=== PATIENT | female | born 1955 ===

== ENCOUNTER 2018-03-06 08:31 | Day surgery (SDC) | payer MEDICAID ==
[~2018-03-06] VITALS: Ht 157.5 cm; Wt 72.9 kg
[~2018-03-06 08:31] MED LIST: ACET325T14 PO; ASPI-496 PO; CANA300T PO; HYDR-3240 PO; IBUP-1484 PO; LOSA1TAB19 PO; METF850T10 PO; [UNRECOGNIZED DRUG - REMARK]
[2018-03-06 09:04] VITALS: BP 131/85
[2018-03-06] MEDS ORDERED: LACTATED RINGERS 1,000 ML IV SCH (09:07)
[2018-03-06] MEDS ORDERED: METF500T17 PO (09:09)
[2018-03-06] MEDS ORDERED: ATOR40TA PO (09:09)
[2018-03-06] MEDS ORDERED: MIDAZOLAM 1 MG/ML, 2ML ONE (09:26)
[2018-03-06] MEDS ORDERED: FENTANYL PF 250 MCG/5ML ONE (09:26)
[2018-03-06] MEDS ORDERED: LIDOCAINE 2% 100MG/5ML SYRINGE ONE (09:28)
[2018-03-06] MEDS ORDERED: CEFOTETAN PMX 2GM/50ML 50 ML ONE ×2 (09:28)
[2018-03-06] MEDS ORDERED: ROCURONIUM 10MG/ML,5ML ONE (09:28)
[2018-03-06] MEDS ORDERED: PROPOFOL 10 MG/ML, 20ML ONE (09:28)
[2018-03-06] MEDS ORDERED: GLYCOPYRROLATE 0.4 MG/2 ML, 2ML ONE (09:37)
[2018-03-06] MEDS ORDERED: NEOSTIGMINE 1 MG/ML, 10ML ONE (09:37)
[2018-03-06] MEDS ORDERED: BUPIVACAINE/PF-EPI 0.5% 1:200K ONE (09:53)
[2018-03-06] MEDS ORDERED: KETOROLAC 30 MG/1 ML ONE (10:12)
[2018-03-06] MEDS ORDERED: DEXAMETHASONE 4 MG/ML, 1ML ONE ×2 (10:12)
[2018-03-06] MEDS ORDERED: ONDANSETRON 2MG/ML, 2ML ONE ×2 (10:12)
[2018-03-06] MEDS ORDERED: ACETAMINOPHEN 325 MG TABLET PO PRN (10:30)
[2018-03-06] MEDS ORDERED: HYDROmorphone 1 MG/ML, 1ML IV PRN (10:30)
[2018-03-06] MEDS ORDERED: PROMETHAZINE 25 MG/ML, 1ML IV PRN (10:30)
[2018-03-06] MEDS ORDERED: LABETALOL 5MG/ML, 20ML IV PRN (10:30)
[2018-03-06] MEDS ORDERED: hydrALAzine 20 MG/ML, 1ML IV PRN (10:30)
[2018-03-06] MEDS ORDERED: OXYcodone 5 MG/5 ML ORAL.SOL UDC PO PRN ×2 (10:30→11:00)
[2018-03-06] MEDS ORDERED: HALOPERIDOL 5 MG/ML IV PRN (10:30)
[2018-03-06] MEDS ORDERED: MEPERIDINE/PF 25MG/0.5ML IVPush PRN (10:30)
[2018-03-06] MEDS ORDERED: ACETAMINOPHEN 650 MG/20.3 ML UDC ONE (11:09)
[2018-03-06] MEDS ORDERED: FENTANYL PF 100 MCG/2ML ONE (11:09)
[2018-03-06] MEDS ORDERED: OXYcodone 5 MG/5 ML ORAL.SOL UDC ONE (11:09)
[2018-03-06] MEDS: FENTANYL PF 100 MCG/2ML IV PRN ×2 (11:13→11:26)
== END 2018-03-06 14:00 | disposition home or self-care (01) ==
LOC: OUT 08:31
PROVIDERS: ATTEND Surgery
DX: K80.10 Calculus of gallbladder with chronic cholecystitis without obstruction (principal); E78.5 Hyperlipidemia, unspecified; I10 Essential (primary) hypertension; E11.9 Type 2 diabetes mellitus without complications; Z79.899 Other long term (current) drug therapy; Z98.49 Cataract extraction status, unspecified eye
CPT/HCPCS: 47562; 82962; 88304; 93005; J1100; J1885; J2250; J2405; J2704; J2710; J3010; J3490; J7120

== ENCOUNTER 2018-09-18 11:08 | Emergency (ER) | payer MEDICAID ==
[~2018-09-18] VITALS: Ht 157.5 cm; Wt 79.2 kg
[~2018-09-18 11:08] MED LIST changes: +ATOR40TA PO; +METF500T17 PO
[2018-09-18 11:16] VITALS: BP 124/77
--- NOTE | 2018-09-18 11:21 | NUR ---
RASH BILATERAL LEGS FOR APPROX 1 WEEK
[2018-09-18 11:57] LABS: BASOPHILS # (AUTO) 0.03 x10^3/uL (0-0.1); BASOPHILS % (AUTO) 1 % (0-1); EOSINOPHILS # (AUTO) 0.33 x10^3/uL (0-0.4); EOSINOPHILS % (AUTO) 5 % (1-7); LYMPHOCYTES # (AUTO) 1.67 x10^3/uL (1-3.4); LYMPHOCYTES % (AUTO) 26 % (22-44); MD NO; MEAN CORPUSCULAR HEMOGLOBIN 29.1 pg (27.0-34.8); MEAN CORPUSCULAR HGB CONC 32.6 g/dL (32.4-35.8); MEAN CORPUSCULAR VOLUME 89.2 fL (80-100); MEAN PLATELET VOLUME 9.5 fL (7.4-10.4); MONOCYTES # (AUTO) 0.54 x10^3/uL (0.2-0.8); MONOCYTES % (AUTO) 9 % (2-9); NEUTROPHILS # (AUTO) 3.76 x10^3/uL (1.8-6.8); NEUTROPHILS % (AUTO) 59 % (42-75); PLATELET COUNT 158 x10^3/uL (130-400); RED BLOOD COUNT 5.06 x10^6/uL (3.82-5.3); RED CELL DISTRIBUTION WIDTH 13.9 % (9.6-15.2)
[2018-09-18 12:13] LABS: ALBUMIN 3.6 g/dL (3.4-5.0); ANION GAP 8 mmol/L (5-15); CALCIUM 8.6 mg/dL (8.5-10.1); CHLORIDE 106 mmol/L (98-107)
[2018-09-18 12:17] LABS: ALANINE AMINOTRANSFERASE 38 U/L (12-78); ALKALINE PHOSPHATASE 107 U/L (45-117); BILIRUBIN,TOTAL 0.3 mg/dL (0.2-1.0); CREATININE 0.79 mg/dL (0.55-1.02); TOTAL PROTEIN 6.9 g/dL (6.4-8.2)
--- NOTE | 2018-09-18 12:30 | NUR ---
RASH AND ITCHING IMPROVED SINCE MEDICATED FOR SAME. PT GIVEN DISCHARGE PAPERS AND AMUBLATED TO DISCHARGE WINDOW, STEADY GAIT
== END 2018-09-18 12:32 | disposition home or self-care (01) ==
LOC: ED 12:21
DX: L20.9 Atopic dermatitis, unspecified (principal); E11.9 Type 2 diabetes mellitus without complications
CPT/HCPCS: 36415; 80053; 85025; 99283; Q0177